=== PATIENT | male | born 1950 | race Caucasian/White ===

== ENCOUNTER → 2017-01-29 | Outpatient (CLI) | payer OTHER ==
[2017-01-29 16:09] LABS: BASOPHILS % (AUTO) 0.9 % (0.2-1.0); EOSINOPHILS # (AUTO) 0.1 x10^3/uL (0.0-0.2); EOSINOPHILS % (AUTO) 5.8 % (0.9-2.9); HEMATOCRIT 30.4 % (42.0-54.0); HEMOGLOBIN 10.2 g/dL (13.5-18.0); LYMPHOCYTES # (AUTO) 0.5 X10^3/uL (1.3-2.9); LYMPHOCYTES % (AUTO) 20.2 % (21.0-51.0); MEAN CORPUSCULAR HEMOGLOBIN 30.9 pg (27.0-34.0); MEAN CORPUSCULAR HGB CONC 33.7 g/dL (33.0-35.0); MEAN CORPUSCULAR VOLUME 91.5 fL (80.0-100.0); MEAN PLATELET VOLUME 8.2 fL (7.4-11.0); MONOCYTES # (AUTO) 0.2 x10^3/uL (0.3-0.8); MONOCYTES % (AUTO) 9.8 % (0.0-13.0); NEUTROPHILS # (AUTO) 1.4 x10^3/uL (2.2-4.8); NEUTROPHILS % (AUTO) 63.3 % (42.0-75.0); PLATELET COUNT 82 X10^3/uL (150.0-450.0); RED BLOOD COUNT 3.32 X10^6/uL (4.7-6.0); RED CELL DISTRIBUTION WIDTH 16.1 % (11.6-16.5); WHITE BLOOD COUNT 2.3 X10^3/uL (3.6-10.0)
[2017-01-29 16:24] LABS: ALBUMIN 3.2 g/dL (3.4-5.0); BILIRUBIN,DIRECT 0.22 mg/dL (0-0.2); TOTAL PROTEIN 7.3 g/dL (6.4-8.2)
[2017-01-29 16:37] LABS: PLATELET MORPHOLOGY COMMENT NORMAL (NORMAL)
[2017-01-31 23:29] LABS: HEPATITIS A ANTIBODY IGM Negative (Negative)
[2017-02-01 06:23] LABS: HEPATITIS B CORE IGM Negative (Negative); HEPATITIS B SURFACE ANTIGEN Negative (Negative)
[2017-02-01 06:25] LABS: COPPER LEVEL 82 ug/dL (70-140)
[2017-02-01 12:41] LABS: ANTI-NUCLEAR ANTIBODY TEST None Detected (None Detected)
== END ==
LOC: LAB 15:22
PROVIDERS: ATTEND Internal Medicine Gastroenterology
DX: K70.30 Alcoholic cirrhosis of liver without ascites (principal); D64.9 Anemia, unspecified
CPT/HCPCS: 36415; 80074; 80076; 82103; 82390; 82525; 82728; 83540; 83550; 85025; 86256; 86308

== ENCOUNTER 2017-02-14 09:05 | Day surgery (SDC) | payer OTHER ==
[2017-02-14] MEDS ORDERED: D5 LR 1000 ML 1,000 ML IV ONE (09:12)
[2017-02-14] MEDS ORDERED: DIPRIVAN VIAL 10 ML ONE (10:34)
[2017-02-14 14:50] VITALS: BP 137/79
== END 2017-02-14 11:10 | disposition home or self-care (01) ==
LOC: SURG1 09:05
PROVIDERS: ATTEND Internal Medicine Gastroenterology
PROC: 0DJ08ZZ Inspection of Upper Intestinal Tract, Via Natural or Artificial Opening Endoscopic (ICD-10-PCS; principal; 2017-02-14 12:45)
DX: K74.69 Other cirrhosis of liver (principal); R10.13 Epigastric pain; K21.9 Gastro-esophageal reflux disease without esophagitis; Z86.59 Personal history of other mental and behavioral disorders; K31.89 Other diseases of stomach and duodenum; K29.60 Other gastritis without bleeding; K29.80 Duodenitis without bleeding; K20.8 Other esophagitis; D64.89 Other specified anemias
CPT/HCPCS: A4217; J3490; J7120